=== PATIENT | female | born 2000 | race Hispanic/Latino ===

== ENCOUNTER 2022-08-25 20:39 | Emergency (ER) | payer OTHER ==
[~2022-08-25] VITALS: Ht 160 cm; Wt 54.4 kg
[2022-08-25] MEDS ORDERED: CYCLOBENZAPRINE HCL 10 MG TABLET PO ONE (21:30)
[2022-08-25] MEDS ORDERED: KETOROLAC 60 MG VIAL (30MG/ML) IM ONE (21:30)
[2022-08-25] MEDS ORDERED: IBUP-2071 PO (21:53)
[2022-08-25 22:06] VITALS: BP 112/63
== END 2022-08-25 22:12 | disposition home or self-care (01) ==
LOC: EDH 20:39
DX: S40.021A Contusion of right upper arm, initial encounter (principal); S50.11XA Contusion of right forearm, initial encounter; S80.11XA Contusion of right lower leg, initial encounter; V49.49XA Driver injured in collision with other motor vehicles in traffic accident, initial encounter; Y93.89 Activity, other specified; Y92.413 State road as the place of occurrence of the external cause; Y99.8 Other external cause status
CPT/HCPCS: 99284; 73090; 73060; 73551; 96372; J1885

== ENCOUNTER 2024-01-14 23:57 | Emergency (ER) | payer BC, MEDICAID ==
[~2024-01-14] VITALS: Ht 160 cm; Wt 72.1 kg
[~2024-01-14 23:57] MED LIST: CEPH500C2 PO; IBUP-2071 PO
[2024-01-15 00:32] LABS: ADD UA MICROSCOPIC YES; APPEARANCE,URINE CLEAR (CLEAR); BILIRUBIN,URINE NEGATIVE (NEGATIVE); COLOR,URINE COLORLESS (YELLOW); GLUCOSE, URINE (UA) NEGATIVE (NEGATIVE); KETONES,URINE NEGATIVE (NEGATIVE); LEUKOCYTE ESTERASE ,URINE 500 Leu/uL (NEGATIVE); NITRATE,URINE NEGATIVE (NEGATIVE); PH,URINE 5.5 (5.0-8.0); PROTEIN,URINE NEGATIVE (NEGATIVE); UROBILINOGEN,URINE 0.2 mg/dL (0.2-1.0)
[2024-01-15 00:34] LABS: HCG,QUALITATIVE URINE NEGATIVE (NEGATIVE)
[2024-01-15 00:35] LABS: BACTERIA,URINE MANY /HPF (None Seen); MUCUS,URINE RARE LPF (None Seen); SQUAMOUS EPITHELIAL CELL,UR RARE /HPF (0-2)
[2024-01-15] MEDS: ACETAMINOPHEN 500 MG TABLET PO ONE (00:52)
[2024-01-15 00:56] LABS: BASOPHILS # (AUTO) 0.04 K/uL (0.00-0.20); BASOPHILS % (AUTO) 0.4 % (0.0-5.0); EOSINOPHILS # (AUTO) 0.14 K/uL (0.00-0.70); EOSINOPHILS % (AUTO) 1.2 % (0.0-8.0); HEMATOCRIT 34.9 % (36-48); IMMATURE GRANULOCYTE ABSOLUTE 0.03 K/uL (0-1); LYMPHOCYTES # (AUTO) 3.2 K/uL (1.0-4.8); LYMPHOCYTES % (AUTO) 28.5 % (21.0-51.0); MEAN CORPUSCULAR HEMOGLOBIN 29.3 pg (27.0-33.0); MEAN CORPUSCULAR HGB CONC 34.4 g/dL (32.0-36.0); MEAN CORPUSCULAR VOLUME 85.1 fL (79-99); MONOCYTES # (AUTO) 0.8 K/uL (0.1-1.0); MONOCYTES % (AUTO) 6.9 % (3.0-13.0); NEUTROPHILS # (AUTO) 7.1 K/uL (1.8-7.7); NEUTROPHILS % (AUTO) 62.7 % (40.0-77.0); PLATELET COUNT (AUTO) 173 K/uL (130-400); WHITE BLOOD COUNT (AUTO) 11.3 K/uL (4.8-10.8)
[2024-01-15 01:06] LABS: CREATININE 0.8 mg/dL (0.5-1.0); POTASSIUM 3.4 mmol/L (3.5-5.1)
[2024-01-15 01:10] LABS: ALBUMIN 3.8 g/dL (3.5-5.0); BILIRUBIN,TOTAL 0.2 mg/dL (0.2-1.0); TOTAL PROTEIN, SERUM 7.1 g/dL (6.0-8.3)
[2024-01-15] MEDS: CEFTRIAXONE 1G VIAL IVPB ONE (01:56)
[2024-01-15] MEDS: KETOROLAC 30MG VIAL (30MG/ML) IVP ONE (04:23)
[2024-01-15 04:55] VITALS: BP 102/55; PULSE 75; RESP 18; O2SAT 99
[2024-01-15] MEDS ORDERED: MACR100 PO (04:58)
[2024-01-15] MEDS ORDERED: IBUP-2070 PO (04:58)
== END 2024-01-15 05:05 | disposition home or self-care (01) ==
LOC: EDH 01-15
DX: N39.0 Urinary tract infection, site not specified (principal); R10.9 Unspecified abdominal pain; K59.00 Constipation, unspecified
CPT/HCPCS: 99284; 74176; 96365; 96375; 80053; 83690; 85025; 87077; 87088; 87186; 87797; 87486; 81001; 81025; 36415; J0696; J1885

== ENCOUNTER 2024-04-20 13:42 | Emergency (ER) | payer BC ==
[~2024-04-20] VITALS: Ht 160 cm; Wt 68.0 kg
[~2024-04-20 13:42] MED LIST changes: +IBUP-2070 PO; +MACR100 PO
[2024-04-20 14:32] LABS: APPEARANCE,URINE CLEAR (CLEAR); BILIRUBIN,URINE NEGATIVE (NEGATIVE); GLUCOSE, URINE (UA) NEGATIVE (NEGATIVE); KETONES,URINE NEGATIVE (NEGATIVE); LEUKOCYTE ESTERASE ,URINE NEGATIVE Leu/uL (NEGATIVE); NITRATE,URINE NEGATIVE (NEGATIVE); OCCULT BLOOD,URINE NEGATIVE (NEGATIVE); PH,URINE 7.5 (5.0-8.0); PROTEIN,URINE NEGATIVE (NEGATIVE); UROBILINOGEN,URINE 0.2 mg/dL (0.2-1.0)
[2024-04-20 14:33] LABS: ADD UA MICROSCOPIC NO; COLOR,URINE LIGHT-YELLOW (YELLOW)
[2024-04-20 14:37] LABS: HCG,QUALITATIVE URINE NEGATIVE (NEGATIVE)
[2024-04-20 15:18] VITALS: BP 110/65; PULSE 66; RESP 16; O2SAT 98
[2024-04-20] MEDS: KETOROLAC 15MG/ML VIAL (15MG/ML) IM ONE (15:20)
[2024-04-20] MEDS ORDERED: KETO10TA2 PO (15:27)
== END 2024-04-20 15:29 | disposition home or self-care (01) ==
LOC: EDH 13:42
DX: R51.9 Headache, unspecified (principal); R42 Dizziness and giddiness; H53.8 Other visual disturbances; Z79.899 Other long term (current) drug therapy; Z79.2 Long term (current) use of antibiotics
CPT/HCPCS: 99284; 70450; 81003; 81025; 96372; J1885

== ENCOUNTER 2024-05-24 00:23 | Emergency (ER) | payer BC ==
[~2024-05-24] VITALS: Ht 160 cm; Wt 68.0 kg
[~2024-05-24 00:23] MED LIST changes: +KETO10TA2 PO
[2024-05-24 00:59] LABS: RAPID GROUP A STREP negative (NEGATIVE)
[2024-05-24 01:02] LABS: SARS-CoV-2, RNA, NAAT NEGATIVE SARS CoV-2 (NEGATIVE)
[2024-05-24 01:06] LABS: INFLUENZA TYPE A Negative For Type A (NEGATIVE); INFLUENZA TYPE B Negative For Type B (NEGATIVE)
[2024-05-24 02:53] VITALS: BP 102/56; PULSE 63; RESP 19; O2SAT 99
[2024-05-24] MEDS ORDERED: AZIT500T4 PO (03:02)
[2024-05-24] MEDS ORDERED: PRED20TA3 PO (03:02)
[2024-05-24] MEDS: Solu-medROL 40MG VIAL IM ONE (03:17)
[2024-05-24] MEDS: KETOROLAC 15MG/ML VIAL (15MG/ML) IM ONE (03:17)
== END 2024-05-24 03:50 | disposition home or self-care (01) ==
LOC: EDH 00:23
DX: B34.9 Viral infection, unspecified (principal); J20.9 Acute bronchitis, unspecified; Z20.822 Contact with and (suspected) exposure to COVID-19; Z79.899 Other long term (current) drug therapy
CPT/HCPCS: 99284; 71045; 87635; 87880; 87804 ×2; 81025; 96372 ×2; J2919; J1885

== ENCOUNTER 2024-05-27 18:36 | Emergency (ER) | payer BC ==
[~2024-05-27] VITALS: Ht 160 cm; Wt 68.0 kg
[~2024-05-27 18:36] MED LIST changes: +AZIT500T4 PO; +PRED20TA3 PO
[2024-05-27 19:07] LABS: RAPID GROUP A STREP negative (NEGATIVE)
[2024-05-27 19:09] LABS: SARS-CoV-2, RNA, NAAT NEGATIVE SARS CoV-2 (NEGATIVE)
[2024-05-27 19:17] LABS: INFLUENZA TYPE A Negative For Type A (NEGATIVE); INFLUENZA TYPE B Negative For Type B (NEGATIVE)
[2024-05-27] MEDS: dexaMETHasone SOD PHOSPHATE 4 MG/ML 1ML VIAL IM ONE (20:12)
[2024-05-27 20:37] VITALS: PULSE 72; RESP 18
[2024-05-27] MEDS: ALBUTEROL 0.083% 2.5 MG/3 ML INH IH ONE (20:37)
[2024-05-27] MEDS ORDERED: AUD IH (20:53)
[2024-05-27] MEDS ORDERED: BUDE1AMP2 IH (20:53)
[2024-05-27] MEDS ORDERED: BENZ-39 PO (20:53)
[2024-05-27] MEDS ORDERED: METH4TAB3 PO (20:53)
[2024-05-27 20:57] VITALS: PULSE 75; RESP 20
[2024-05-27] MEDS: BUDESONIDE 0.5 MG/2 ML INH IH STA (20:57)
[2024-05-27 20:59] VITALS: BP 116/65; PULSE 70; RESP 16; O2SAT 99
== END 2024-05-27 21:30 | disposition home or self-care (01) ==
LOC: EDH 18:36
DX: J45.901 Unspecified asthma with (acute) exacerbation (principal); R06.00 Dyspnea, unspecified; R05.9 Cough, unspecified; Z79.899 Other long term (current) drug therapy; Z20.822 Contact with and (suspected) exposure to COVID-19
CPT/HCPCS: 99284; 71045; 87635; 84703; 87880; 87804 ×2; 36415; 96372; 94640 ×2; J1100

== ENCOUNTER 2024-06-28 15:25 | Emergency (ER) | payer BC ==
[~2024-06-28] VITALS: Ht 160 cm; Wt 68.0 kg
[~2024-06-28 15:25] MED LIST changes: +AUD IH; +BENZ-39 PO; +BUDE1AMP2 IH; +METH4TAB3 PO
[2024-06-28 16:46] LABS: RAPID GROUP A STREP negative (NEGATIVE)
[2024-06-28 16:48] LABS: SARS-CoV-2, RNA, NAAT NEGATIVE SARS CoV-2 (NEGATIVE)
[2024-06-28 16:54] LABS: INFLUENZA TYPE A Negative For Type A (NEGATIVE); INFLUENZA TYPE B Negative For Type B (NEGATIVE)
[2024-06-28] MEDS ORDERED: PNV-5 PO (16:56)
[2024-06-28 17:36] VITALS: BP 121/71; PULSE 64; RESP 16; TEMP 98.5; O2SAT 100
== END 2024-06-28 17:46 | disposition home or self-care (01) ==
LOC: EDH 15:25
DX: O98.511 Other viral diseases complicating pregnancy, first trimester (principal); Z20.822 Contact with and (suspected) exposure to COVID-19; B34.9 Viral infection, unspecified; O26.891 Other specified pregnancy related conditions, first trimester; H92.01 Otalgia, right ear; R10.2 Pelvic and perineal pain
CPT/HCPCS: 36415; 84702; 87635; 87804; 87880

== ENCOUNTER 2024-07-23 00:01 | Emergency (ER) | payer BC ==
[~2024-07-23] VITALS: Ht 160 cm; Wt 68.0 kg
[~2024-07-23 00:01] MED LIST changes: +PNV-5 PO
[2024-07-23 00:45] LABS: BASOPHILS # (AUTO) 0.04 K/uL (0.00-0.20); BASOPHILS % (AUTO) 0.4 % (0.0-5.0); EOSINOPHILS # (AUTO) 0.08 K/uL (0.00-0.70); EOSINOPHILS % (AUTO) 0.7 % (0.0-8.0); HEMATOCRIT 35.2 % (36-48); IMMATURE GRANULOCYTE ABSOLUTE 0.03 K/uL (0-1); LYMPHOCYTES # (AUTO) 2.5 K/uL (1.0-4.8); LYMPHOCYTES % (AUTO) 22.7 % (21.0-51.0); MEAN CORPUSCULAR HEMOGLOBIN 29.9 pg (27.0-33.0); MEAN CORPUSCULAR HGB CONC 34.7 g/dL (32.0-36.0); MEAN CORPUSCULAR VOLUME 86.3 fL (79-99); MONOCYTES # (AUTO) 0.8 K/uL (0.1-1.0); MONOCYTES % (AUTO) 6.7 % (3.0-13.0); NEUTROPHILS # (AUTO) 7.8 K/uL (1.8-7.7); NEUTROPHILS % (AUTO) 69.2 % (40.0-77.0); PLATELET COUNT (AUTO) 172 K/uL (130-400); RED BLOOD CELL COUNT(AUTO) 4.08 MIL/uL (4.00-5.50); RED CELL DISTRIBUTION WIDTH 13.4 % (11.0-15.5); WHITE BLOOD COUNT (AUTO) 11.2 K/uL (4.8-10.8)
[2024-07-23 01:03] LABS: CREATININE 0.6 mg/dL (0.5-1.0); POTASSIUM 3.7 mmol/L (3.5-5.1)
[2024-07-23] MEDS: ondanSETRON 4MG INJ IVP ONE (01:06)
[2024-07-23] MEDS: 0.9%NACL 1000ML 1,000 ML IV ONE (01:06)
[2024-07-23] MEDS: acetaMINOPHEN 500 MG TABLET PO ONE (01:06)
[2024-07-23 01:29] LABS: ALBUMIN 3.8 g/dL (3.5-5.0); BILIRUBIN,TOTAL 0.3 mg/dL (0.2-1.0); TOTAL PROTEIN, SERUM 7.2 g/dL (6.0-8.3)
[2024-07-23 01:37] VITALS: TEMP 98.5
[2024-07-23 01:48] LABS: ADD UA MICROSCOPIC YES; APPEARANCE,URINE CLOUDY (CLEAR); BILIRUBIN,URINE NEGATIVE (NEGATIVE); COLOR,URINE LIGHT-YELLOW (YELLOW); GLUCOSE, URINE (UA) NEGATIVE (NEGATIVE); KETONES,URINE 100 mg/dL (NEGATIVE); LEUKOCYTE ESTERASE ,URINE 500 Leu/uL (NEGATIVE); NITRATE,URINE NEGATIVE (NEGATIVE); OCCULT BLOOD,URINE NEGATIVE (NEGATIVE); PH,URINE 5.5 (5.0-8.0); PROTEIN,URINE NEGATIVE (NEGATIVE); UROBILINOGEN,URINE 0.2 mg/dL (0.2-1.0)
[2024-07-23 01:50] LABS: HCG,QUALITATIVE URINE POSITIVE (NEGATIVE)
[2024-07-23 01:51] LABS: BACTERIA,URINE RARE /HPF (None Seen); SQUAMOUS EPITHELIAL CELL,UR FEW /HPF (0-2); WBC,URINE 51-100 /HPF (0-1)
[2024-07-23] MEDS: cefTRIAXone 1G VIAL IVPB ONE (01:59)
[2024-07-23] MEDS ORDERED: CEPH500B PO (03:00)
[2024-07-23] MEDS: AZITHROMYCIN 250 MG TABLET PO ONE (03:20)
[2024-07-23 03:25] VITALS: BP 110/65; PULSE 70; RESP 18; TEMP 98.3; O2SAT 99
== END 2024-07-23 03:25 | disposition home or self-care (01) ==
LOC: EDH 00:01
DX: O23.41 Unspecified infection of urinary tract in pregnancy, first trimester (principal); N18.9 Chronic kidney disease, unspecified; O26.891 Other specified pregnancy related conditions, first trimester; O99.281 Endocrine, nutritional and metabolic diseases complicating pregnancy, first trimester; E87.1 Hypo-osmolality and hyponatremia; E87.8 Other disorders of electrolyte and fluid balance, not elsewhere classified; R10.2 Pelvic and perineal pain; Z3A.00 Weeks of gestation of pregnancy not specified; Z79.899 Other long term (current) drug therapy
CPT/HCPCS: 99284; 96374; 76801; 96375; 80053; 84702; 83690; 85025; 87086; 87491; 87591; 81001; 81025; 36415; J7030; J0696; J2405

== ENCOUNTER 2024-09-11 14:08 | Emergency (ER) | payer BC ==
[~2024-09-11] VITALS: Ht 165.1 cm; Wt 68.0 kg
[~2024-09-11 14:08] MED LIST changes: +CEPH500B PO
[2024-09-11 15:20] LABS: APPEARANCE,URINE CLEAR (CLEAR); BILIRUBIN,URINE NEGATIVE (NEGATIVE); COLOR,URINE YELLOW (YELLOW); GLUCOSE, URINE (UA) NEGATIVE (NEGATIVE); KETONES,URINE 5 mg/dL (NEGATIVE); LEUKOCYTE ESTERASE ,URINE NEGATIVE Leu/uL (NEGATIVE); NITRATE,URINE NEGATIVE (NEGATIVE); OCCULT BLOOD,URINE NEGATIVE (NEGATIVE); PH,URINE 6.5 (5.0-8.0); PROTEIN,URINE 10 mg/dL (NEGATIVE)
[2024-09-11 15:25] LABS: ADD UA MICROSCOPIC YES
[2024-09-11 15:26] LABS: BASOPHILS # (AUTO) 0.02 K/uL (0.00-0.20); BASOPHILS % (AUTO) 0.3 % (0.0-5.0); EOSINOPHILS # (AUTO) 0.05 K/uL (0.00-0.70); EOSINOPHILS % (AUTO) 0.6 % (0.0-8.0); HEMATOCRIT 36.6 % (36-48); IMMATURE GRANULOCYTE ABSOLUTE 0.02 K/uL (0-1); LYMPHOCYTES # (AUTO) 1.6 K/uL (1.0-4.8); MEAN CORPUSCULAR HEMOGLOBIN 29.7 pg (27.0-33.0); MEAN CORPUSCULAR HGB CONC 33.9 g/dL (32.0-36.0); MEAN CORPUSCULAR VOLUME 87.8 fL (79-99); MONOCYTES # (AUTO) 0.5 K/uL (0.1-1.0); MONOCYTES % (AUTO) 5.9 % (3.0-13.0); NEUTROPHILS # (AUTO) 5.8 K/uL (1.8-7.7); NEUTROPHILS % (AUTO) 72.9 % (40.0-77.0); PLATELET COUNT (AUTO) 165 K/uL (130-400); RED BLOOD CELL COUNT(AUTO) 4.17 MIL/uL (4.00-5.50); RED CELL DISTRIBUTION WIDTH 12.6 % (11.0-15.5); WHITE BLOOD COUNT (AUTO) 7.9 K/uL (4.8-10.8)
[2024-09-11 15:29] LABS: MUCUS,URINE RARE LPF (None Seen); RBC,URINE 0-1 /HPF (0-1); SQUAMOUS EPITHELIAL CELL,UR MOD /HPF (0-2)
[2024-09-11 15:52] LABS: ALBUMIN 3.3 g/dL (3.5-5.0); BILIRUBIN,DIRECT 0.1 mg/dL (0.0-0.3); BILIRUBIN,TOTAL 0.4 mg/dL (0.2-1.0); CREATININE 0.5 mg/dL (0.5-1.0); POTASSIUM 3.6 mmol/L (3.5-5.1); TOTAL PROTEIN, SERUM 6.9 g/dL (6.0-8.3)
[2024-09-11 15:54] VITALS: BP 115/70; PULSE 77; RESP 16; TEMP 98.3; O2SAT 100
--- NOTE | 2024-09-11 15:56 | HMCIMG ---
US OB >14 WEEKS REASON: lower abd pain during approx 14 weeks COMPARISON: None TECHNIQUE: Routine OB sonogram was performed. FINDINGS: There is a single fetus in breech position with positive motion and heartbeat, 164 BPM. Composite gestational age is 15 weeks 5 days. Placenta is fundal and grade 1 with JORGE 12 cm. Estimated weight is 144 g. Visualized anatomy appears unremarkable. IMPRESSION: 1. Single fetus in breech position 15 weeks 5 days by composite gestational age.
[2024-09-11] MEDS ORDERED: CEPH500B PO (16:40)
--- NOTE | 2024-09-11 16:43 | ERN ---
General Chief Complaint: Abdominal Pain in Stated Complaint: LOWER ABD PAIN Time Seen by MD: 14:10 Time Seen by Midlevel: 14:10 Source: patient History of Present Illness Initial Comments Patient is a 24-year-old female with no significant past medical history presenting to the emergency department with lower abdominal pain and dysuria that started yesterday. No fever, chills, nausea, vomiting, or any other symptoms reported at this time. Patient reports being approximately 15 weeks . She has an appointment scheduled with her OBGYN in several days. No other symptoms reported at this time. Allergies: Coded Allergies: No Known Drug Allergies (Unverified Allergy, Unknown, 08/25/22) Home Meds Active Scripts Cephalexin Monohydrate (Keflex) 500 Mg Cap, 500 MG PO TID for 7 Days, #21 CAP Prov:VENTURA ZAVALA 09/11/24 Cephalexin Monohydrate (Keflex) 500 Mg Cap, 500 MG PO QID for 7 Days, #28 CAP Prov:ANNA MARIE VELAZQUEZ MD 07/23/24 Pnv 119/Iron Fum/Folic Acid ( 19 Tablet) 29 Mg Iron-1 Mg Tablet, 1 EACH PO DAILY, #30 TAB Prov:SHANNON VANESSA NP 06/28/24 Methylprednisolone (Medrol) 4 Mg Tab.ds.pk, 4 MG PO AD, #1 UNIT Prov:SHANNON VNAESSA NP 05/27/24 Benzonatate (Tessalon Perles) 100 Mg Cap, 200 MG PO TID for cough, #60 CAP 0 Refills TWO CAPSULES P.O. EVERY8 HOURS P.R.N. COUGH Prov:SHANNON VANESSA NP 05/27/24 Budesonide (Budesonide) 1 Mg/2 Ml Ampul.neb, 1 MG IH BID for 10 Days, #25 UNITS Prov:SHANNON VANESSA NP 05/27/24 Albuterol Sulfate (Albuterol Sulfate) 2.5 Mg/0.5 Ml Vial.neb, 2.5 MG IH Q6H for wheezing/sob, #20 INH 0 Refills Prov:SHANNON VANESSA NP 05/27/24 Azithromycin (Azithromycin) 500 Mg Tablet, 500 MG PO DAILY for 5 Days, #5 TAB Prov:ZEB GOMEZ MD 05/24/24 Prednisone (Prednisone) 20 Mg Tablet, 1 TAB PO AD for 6 Days, #14 TAB 0 Refills TAKE 1 TAB BY MOUTH THREE TIMES PER DAY X3 DAYS, THEN TAKE 1 TAB BY MOUTH TWICE A DAY X2 DAYS, THEN TAKE 1 TAB BY MOUTH ONCE A DAY X1 DAY. Prov:ZEB GOMEZ MD 05/24/24 Ketorolac Tromethamine (Ketorolac Tromethamine) 10 Mg Tablet, 10 MG PO BID for 5 Days, #10 TAB Prov:VENTURA ZAVALA 04/20/24 Ibuprofen (Ibuprofen) 600 Mg Tablet, 600 MG PO Q6H PRN for PAIN, #30 TAB 0 Refills Prov:CRIS MAXWELL MD 01/15/24 Nitrofurantoin/Nitrofuran Mac (Macrobid) 100 Mg Cap, 1 CAP PO BID for 7 Days, #14 CAP 0 Refills Prov:CRIS MAXWELL MD 01/15/24 Cephalexin (Cephalexin) 500 Mg Capsule, 500 MG PO TID for 10 Days, #30 CAP Prov:SUE SANCHEZ MD 01/04/23 Ibuprofen (Ibuprofen) 800 Mg Tablet, 800 MG PO TID PRN for PAIN, #45 TAB Prov:ZAINAB JIMENEZ 08/25/22 Past Medical History Past Medical History: No Pertinent History Past Surgical History: None Family History Family History: Negative Social History Social History: Lives with family Female( History) History: Not Applicable LMP: May 23, 2024 : 1 Para: 0 ROS Dictation CONSTITUTIONAL: Negative except for HPI HEAD/FACE: Negative except for HPI EENT: Negative except for HPI RESPIRATORY: Negative except for HPI GASTROINTESTINAL/ABDOMINAL: Negative except for HPI GENITOURINARY: Negative except for HPI MUSCULOSKELETAL: Negative except for HPI INTEGUMENTARY: Negative except for HPI NEUROLOGICAL/PSYCH: Negative except for HPI HEMATOLOGIC/LYMPHATIC: Negative except for HPI All Systems Negative, Except as noted above. 13 point review of systems assessed and all negative except for above. Physical Exam Physical Exam Dictation Vital Signs reviewed General Appearance: Alert, oriented x 3, no acute distress, well developed, nourished. Head and Face: non-traumatic. Eyes: PERRL, pink conjunctivas, eyelid no trauma, anterior chamber with arcus senilis. Ears: Pinnas intact and no signs of trauma or erythema ear canals clear and no discharge TM no erythema Nose: No discharge, no bleeding. Oropharynx: Mouth normal, tongue pink, pharynx clear,no erythema, tonsils no exudates, no abscesses noted, mucous membrane moist Neck: Supple, non-tender, no thyromegaly, no masses, no JVD, no bruits Breast:Deferred Chest:No tenderness, no crepitus, no paradoxical movement, no retractions Lungs:Clear, well-ventilated, symmetric, no rales, no wheezing, no rhonchi, no stridor, good breath sounds bilaterally Heart: Regular rate, regular rhythm, no murmur, no gallops Vascular: no peripheral edema, Abdomen: Soft, positive bowel sounds, nondistended, no guarding, nontender, no rebound, no masses no hepatomegaly, no splenomegaly, no Koch's sign, no hernias. Rectal: Deferred Genital: Deferred Neurological: Normal speech, motor function intact, sensory function intact Musculoskeletal: Neck nontender, full range of motion, back nontender, full range of motion, Extremities: nontender, full range of motion Skin: Color pink, dry, no turgor, no rash, no lacerations, no abrasions, no contusions. Lymphatic: Deferred Results Laboratory and Microbiology Lab and Micro Result Laboratory Tests Test 09/11/24 15:00 09/11/24 15:08 Urine Color YELLOW (YELLOW) Urine Appearance CLEAR (CLEAR) Urine pH 6.5 (5.0-8.0) Urine Specific [place] 1.023 (1.001-1.031) Urine Protein 10 mg/dL (NEGATIVE) H Urine Glucose (UA) NEGATIVE mg/dL (NEGATIVE) Urine Ketones 5 mg/dL (NEGATIVE) H Urine Occult Blood NEGATIVE (NEGATIVE) Urine Nitrate NEGATIVE (NEGATIVE) Urine Bilirubin NEGATIVE mg/dL (NEGATIVE) Urine Urobilinogen 2.0 mg/dL (0.2-1.0) H Urine Leukocyte Esterase NEGATIVE Mehul/uL Urine RBC 0-1 /HPF (0-1) Urine WBC 2-5 /HPF (0-1) H Urine Squamous Epithelial Cells MOD /HPF (0-2) Urine Bacteria None /HPF (None Seen) White Blood Count 7.9 K/uL (4.8-10.8) Red Blood Count 4.17 MIL/uL (4.00-5.50) Hemoglobin 12.4 g/dL (12.0-16.0) Hematocrit 36.6 % (36-48) Mean Corpuscular Volume 87.8 fL (79-99) Mean Corpuscular Hemoglobin 29.7 pg (27.0-33.0) Mean Corpuscular Hemoglobin Concent 33.9 g/dL (32.0-36.0) Red Cell Distribution Width 12.6 % (11.0-15.5) Platelet Count 165 K/uL (130-400) Mean Platelet Volume 12.0 fL (7.5-10.5) H Immature Granulocyte % (Auto) 0.3 % (0-1) Neutrophils (%) (Auto) 72.9 % (40.0-77.0) Lymphocytes (%) (Auto) 20.0 % (21.0-51.0) L Monocytes (%) (Auto) 5.9 % (3.0-13.0) Eosinophils (%) (Auto) 0.6 % (0.0-8.0) Basophils (%) (Auto) 0.3 % (0.0-5.0) Neutrophils # (Auto) 5.8 K/uL (1.8-7.7) Lymphocytes # (Auto) 1.6 K/uL (1.0-4.8) Monocytes # (Auto) 0.5 K/uL (0.1-1.0) Eosinophils # (Auto) 0.05 K/uL (0.00-0.70) Basophils # (Auto) 0.02 K/uL (0.00-0.20) Absolute Immature Granulocyte (auto 0.02 K/uL (0-1) Nucleated Red Blood Cells 0.0 % (0.0-0.19) Sodium Level 139 mmol/L (136-145) Potassium Level 3.6 mmol/L (3.5-5.1) Chloride Level 105 mmol/L (101-111) Carbon Dioxide Level 27 mmol/L (21-32) Blood Urea Nitrogen 5 mg/dL (7-18) L Creatinine 0.5 mg/dL (0.5-1.0) Glomerular Filtration Rate Calc 135 mL/min (>90) Random Glucose 67 mg/dL (70-105) L Total Calcium 8.5 mg/dL (8.5-10.1) Total Bilirubin 0.4 mg/dL (0.2-1.0) Direct Bilirubin 0.1 mg/dL (0.0-0.3) Aspartate Amino Transf (AST/SGOT) 22 U/L (10-37) Alanine Aminotransferase (ALT/SGPT) 30 U/L (12-78) Alkaline Phosphatase 64 U/L (50-136) Total Protein 6.9 g/dL (6.0-8.3) Albumin 3.3 g/dL (3.5-5.0) L Lipase 31 U/L (16-77) Human Chorionic Gonadotropin, Quant 31202 mIU/mL (0-5) H Labs Reviewed?: Yes MDM MDM: Patient is a 24-year-old female with no significant past medical history presenting to the emergency department with lower abdominal pain and dysuria that started yesterday. No fever, chills, nausea, vomiting, or any other symptoms reported at this time. Patient reports being approximately 15 weeks . She has an appointment scheduled with her OBGYN in several days. No other symptoms reported at this time. On physical examination patient is in no acute distress. Her CBC shows a normal white blood cell count of 7.9. Hemoglobin is stable at 12.4. Chemistries [place] [address]. Her urinalysis does not show any evidence of infection. However patient has dysuria. We will treat for urinary tract infection. Pelvic ultrasound rev eals a single fetus in breech position measuring approximately 15 weeks and five days. Lab and imaging was discussed with the patient she was advised to follow up with OBGYN. Return precautions discussed. Patient is stable for discharge Differential diagnosis: Urinary tract infection, pyelonephritis,Spontaneous There are no social concerns with this patient. Prescription drug management Prescriptions will include: Keflex Medical management and examination interpretation discussions were had by me with other qualified healthcare professionals as indicated for the patient's care. ED Course Orders Procedure Category Date Status Time Cbc With Differential LAB 09/11/24 Complete 14:22 Basic Metabolic Panel LAB 09/11/24 Complete 14:22 Hepatic Function Panel LAB 09/11/24 Complete 14:22 Lipase LAB 09/11/24 Complete 14:22 Hcg,Quantitative LAB 09/11/24 Complete 14:22 Urinalysis Profile LAB 09/11/24 Complete 14:22 Us Ob >14 Weeks US 09/11/24 Resulted 15:15 Vital Signs Date Time Temp Pulse Resp B/P (MAP) Pulse Ox O2 Delivery O2 Flow Rate FiO2 09/11/24 15:54 98.2 77 16 115/70 100 Room Air* 0 21 09/11/24 14:09 98.4 71 16 117/70 100 Room Air 0 DX & DISP Disposition: Discharge Departure Impression: Primary Impression: Abdominal pain during Additional Impression: Dysuria Condition: Stable Scripts Cephalexin Monohydrate (Keflex) 500 Mg Cap 500 MG PO TID for 7 Days, #21 CAP Prov: VENTURA ZAVALA 09/11/24 Additional Instructions: Your blood work today is unremarkable. Your urinalysis does not show any evidence of infection however you are having symptoms so I will go ahead and treat for urinary tract infection to prevent a kidney infection. Your pelvic ultrasound shows an intrauterine gestation measuring approximately 15 weeks and five days. Please follow up with your primary care doctor in 2-3 days for repeat evaluation. Keep appointment with your OBGYN as scheduled. Return to the ER for any new or worsening symptoms Referrals: SELF,REFERRAL (PCP) Time of Disposition: 16:39 I have reviewed the case, and I agree with, Diagnosis and Plan I performed the substantive portion of the visit. I have reviewed and personally made and approve the management plan that is documented in the note by myself or the LYNETTE. I acknowledge for responsibility for the patient's management plan. VENTURA ZAVALA Sep 11, 2024 16:42
== END 2024-09-11 16:55 | disposition home or self-care (01) ==
LOC: EDH 14:08
DX: O26.892 Other specified pregnancy related conditions, second trimester (principal); R10.30 Lower abdominal pain, unspecified; R30.0 Dysuria; R10.2 Pelvic and perineal pain; Z3A.15 15 weeks gestation of pregnancy
CPT/HCPCS: 36415; 76805; 80048; 80076; 81001; 83690; 84702; 85025; 99284

== ENCOUNTER 2024-10-03 15:55 | Emergency (ER) | payer BC ==
[~2024-10-03] VITALS: Ht 160 cm; Wt 68.0 kg
[2024-10-03 19:14] LABS: BILIRUBIN,URINE NEGATIVE (NEGATIVE); COLOR,URINE LIGHT-YELLOW (YELLOW); GLUCOSE, URINE (UA) NEGATIVE (NEGATIVE); KETONES,URINE NEGATIVE (NEGATIVE); LEUKOCYTE ESTERASE ,URINE 500 Leu/uL (NEGATIVE); NITRATE,URINE NEGATIVE (NEGATIVE); OCCULT BLOOD,URINE NEGATIVE (NEGATIVE); PROTEIN,URINE NEGATIVE (NEGATIVE); UROBILINOGEN,URINE 0.2 mg/dL (0.2-1.0)
[2024-10-03 19:18] LABS: ADD UA MICROSCOPIC YES; APPEARANCE,URINE HAZY (CLEAR)
[2024-10-03 19:24] LABS: RAPID GROUP A STREP negative (NEGATIVE)
[2024-10-03] MEDS: acetaMINOPHEN 500 MG TABLET PO ONE (19:26)
--- NOTE | 2024-10-03 19:28 | ERN ---
ED Note History of Present Illness Stated Complaint: FEVER Chief Complaint: Fever Time Seen by MD: 18:01 Time Seen by Midlevel: 18:01 Dictation: The patient is a 24-year-old female with no past medical history who presents to the emergency department with complaints of body aches, nasal congestion, burning urination onset yesterday. Patient denies any abdominal pain, flank sharan n, no fevers, vaginal bleeding or discharge. Patient does report she is a 19 weeks . G1. Denies nausea vomiting diarrhea. Allergies: Coded Allergies: No Known Drug Allergies (Unverified Allergy, Unknown, 08/25/22) Home Meds Active Scripts Cephalexin Monohydrate (Keflex) 500 Mg Cap, 500 MG PO QID for 7 Days, #28 CAP Prov:TRISTON VELAZQUEZ 10/03/24 Cephalexin Monohydrate (Keflex) 500 Mg Cap, 500 MG PO TID for 7 Days, #21 CAP Prov:VENTURA ZAVALA 09/11/24 Cephalexin Monohydrate (Keflex) 500 Mg Cap, 500 MG PO QID for 7 Days, #28 CAP Prov:ANNA MARIE VELAZQUEZ MD 07/23/24 Pnv 119/Iron Fum/Folic Acid ( 19 Tablet) 29 Mg Iron-1 Mg Tablet, 1 EACH PO DAILY, #30 TAB Prov:SHANNON VANESSA NP 06/28/24 Methylprednisolone (Medrol) 4 Mg Tab.ds.pk, 4 MG PO AD, #1 UNIT Prov:SHANNON VANESSA NP 05/27/24 Benzonatate (Tessalon Perles) 100 Mg Cap, 200 MG PO TID for cough, #60 CAP 0 Refills TWO CAPSULES P.O. EVERY8 HOURS P.R.N. COUGH Prov:SHANNNO VANESSA NP 05/27/24 Budesonide (Budesonide) 1 Mg/2 Ml Ampul.neb, 1 MG IH BID for 10 Days, #25 UNITS Prov:SHANNON VANESSA NP 05/27/24 Albuterol Sulfate (Albuterol Sulfate) 2.5 Mg/0.5 Ml Vial.neb, 2.5 MG IH Q6H for wheezing/sob, #20 INH 0 Refills Prov:SHANNON VANESSA NP 05/27/24 Azithromycin (Azithromycin) 500 Mg Tablet, 500 MG PO DAILY for 5 Days, #5 TAB Prov:ZEB GOMEZ MD 05/24/24 Prednisone (Prednisone) 20 Mg Tablet, 1 TAB PO AD for 6 Days, #14 TAB 0 Refills TAKE 1 TAB BY MOUTH THREE TIMES PER DAY X3 DAYS, THEN TAKE 1 TAB BY MOUTH TWICE A DAY X2 DAYS, THEN TAKE 1 TAB BY MOUTH ONCE A DAY X1 DAY. Prov:ZEB GOMEZ MD 05/24/24 Ketorolac Tromethamine (Ketorolac Tromethamine) 10 Mg Tablet, 10 MG PO BID for 5 Days, #10 TAB Prov:VENTURA ZAVALA 04/20/24 Ibuprofen (Ibuprofen) 600 Mg Tablet, 600 MG PO Q6H PRN for PAIN, #30 TAB 0 Refills Prov:CRIS MAXWELL MD 01/15/24 Nitrofurantoin/Nitrofuran Mac (Macrobid) 100 Mg Cap, 1 CAP PO BID for 7 Days, #14 CAP 0 Refills Prov:CRIS MAXWELL MD 01/15/24 Cephalexin (Cephalexin) 500 Mg Capsule, 500 MG PO TID for 10 Days, #30 CAP Prov:SUE SANCHEZ MD 01/04/23 Ibuprofen (Ibuprofen) 800 Mg Tablet, 800 MG PO TID PRN for PAIN, #45 TAB Prov:ZAINAB JIMENEZ 08/25/22 Past Medical History Past Medical History: No Pertinent History Surgical History: None Family History: Negative Social History: Lives with family History: Not Applicable LMP: May 21, 2024 : 1 Para: 0 RN Note Reviewed/Agreed w/PFSH: Yes Review of System Dictation Constitutional: Negative for fever,chills, and weight loss positive for body aches Eyes: Negative for injury, pain,redness, and discharge ENT: Negative for injury,pain or swelling positive for nasal congestion Cardiovascular: Negative for chest pain, palpitations, and edema Respiratory: Negative for shortness of breath, cough, and wheezing, Abdomen/GI: Negative for abdominal pain, nausea, vomiting, diarrhea, and constipation Back: Negative for injury and pain : Negative for injury, bleeding and discharge positive for burning urination MS/Extremity: Negative for injury and deformity Skin: Negative for rash, and discoloration Neuro: Negative for headache, weakness, numbness, tingling, and seizure Psych: Negative for suicide ideation, homicidal ideation, and hallucinations Initial Vital Sign VS Vital Signs Date Time Temp Pulse Resp B/P (MAP) Pulse Ox O2 Delivery O2 Flow Rate FiO2 10/03/24 18:03 97.5 69 20 98/66 99 Room Air 0 10/03/24 19:12 21 Physical Exam Dictation Vital Signs reviewed General Appearance: Alert, oriented x 3, no acute distress, well developed, nourished. Head and Face: non-traumatic. Eyes: PERRL, pink conjunctivas, eyelid no trauma, anterior chamber with arcus senilis. Ears: Pinnas intact and no signs of trauma or erythema ear canals clear and no discharge TM no erythema Nose: No discharge, no bleeding. Oropharynx: Mouth normal, tongue pink. pharynx clear,no erythema, tonsils no exudates, no abscesses noted, mucous membrane moist Neck: Supple, non-tender, no thyromegaly, no masses, no JVD, no bruits Breast:Deferred Chest:No tenderness, no crepitus, no paradoxical movement, no retractions Lungs:Clear, well-ventilated, symmetric, no rales, no wheezing, no rhonchi, no stridor, good breath sounds bilaterally Heart: Regular rate, regular rhythm, no murmur, no gallops Vascular: no peripheral edema, Abdomen: Soft, positive bowel sounds, nondistended, no guarding, nontender, no rebound, no masses no hepatomegaly, no splenomegaly, no Koch's sign, no hernias. Rectal: Deferred Genital: Deferred Neurological: Normal speech, motor function intact, sensory function intact Musculoskeletal: Neck nontender, full range of motion, back nontender, full range of motion, Extremities: nontender, full range of motion Skin: Color pink, dry, no turgor, no rash, no lacerations, no abrasions, no cont usions. Lymphatic: Deferred Results (Laboratory/Radiology) Laboratory/Radiology Laboratory Tests Test 10/03/24 18:18 10/03/24 19:00 Urine Color LIGHT-YELLOW (YELLOW) Urine Appearance HAZY (CLEAR) Urine pH 7.0 (5.0-8.0) Urine Specific [place] 1.007 (1.001-1.031) Urine Protein NEGATIVE mg/dL (NEGATIVE) Urine Glucose (UA) NEGATIVE mg/dL (NEGATIVE) Urine Ketones NEGATIVE mg/dL (NEGATIVE) Urine Occult Blood NEGATIVE (NEGATIVE) Urine Nitrate NEGATIVE (NEGATIVE) Urine Bilirubin NEGATIVE mg/dL (NEGATIVE) Urine Urobilinogen 0.2 mg/dL (0.2-1.0) Urine Leukocyte Esterase 500 Mehul/uL (NEGATIVE) H Urine RBC 0-1 /HPF (0-1) Urine WBC 26-50 /HPF (0-1) H Urine Squamous Epithelial Cells FEW /HPF (0-2) Urine Bacteria FEW /HPF (None Seen) Influenza Type A Antigen Negative For Type A Influenza Type B Antigen Negative For Type B SARS-CoV-2 Antigen (Rapid) PRESUMPTIVE NEGATIVE Group A Streptococcus Rapid negative (NEGATIVE) Labs Reviewed?: Yes ED Course ED Course Orders Procedure Category Date Status Time Influenza Type A & B, LAB 10/03/24 Complete Rapid 18:25 Covid19 (Sars Antigen LAB 10/03/24 Complete Rapid) 18:25 Rapid (Group A Strep) LAB 10/03/24 Complete 18:25 Acetaminophen 500mg PHA 10/03/24 Complete Tab (Tylenol 500mg T 18:30 Urinalysis Profile LAB 10/03/24 Complete 18:28 Culture Urine DONNY 10/03/24 Complete 19:19 Ceftriaxone 1g Vial PHA 10/03/24 Complete (Rocephine 1g Inj) 20:00 Current Medications Medications (Trade) Dose Ordered Sig/Cecelia Route PRN Reason Start Time Stop Time Status Last Admin Dose Admin Acetaminophen (TYLenol 500MG TAB) 1,000 mg ONCE ONCE PO 10/03/24 18:30 10/03/24 18:31 DC 10/03/24 19:26 Ceftriaxone Sodium (ROCEphine 1G INJ) 1 gm ONCE ONCE IM 10/03/24 20:00 10/03/24 20:01 DC 10/03/24 20:19 Vital Signs Date Time Temp Pulse Resp B/P (MAP) Pulse Ox O2 Delivery O2 Flow Rate FiO2 10/03/24 20:29 98.2 65 16 102/68 98 Room Air* 0 21 10/03/24 19:12 98.1 69 16 98/66 98 Room Air* 0 21 10/03/24 18:03 97.5 69 20 98/66 99 Room Air 0 Medical Decision Making MDM The patient is a 24-year-old female with no past medical history who presents to the emergency department with complaints of body aches, nasal congestion, burning urination onset yesterday. Patient denies any abdominal pain, flank pain, no fevers, vaginal bleeding or discharge. Patient does report she is a 19 weeks . G1. Denies nausea vomiting diarrhea. Serology negative. Urinalysis consistent with UTI. Patient will be treated with the antibiotics and instructed to follow up with the OBGYN and PCP. Patient in no acute distress, nontoxic appearance. Differential diagnosis: UTI, upper respiratory infection, COVID-19 infection Need for hospitalization: Patient does not meet criteria for hospitalization. There are no social concerns with this patient. DX & DISP Disposition: Discharge Departure Impression: Primary Impression: UTI (urinary tract infection) Additional Impression: URI (upper respiratory infection) Condition: Stable Scripts Cephalexin Monohydrate (Keflex) 500 Mg Cap 500 MG PO QID for 7 Days, #28 CAP Prov: TRISTON VELAZQUEZ 10/03/24 Additional Instructions: Is follow up with your primary doctor in 1-2 days and your OBGYN. Take your medications as prescribed. If symptoms worsen you started having flank pain abdominal pain, fatigue please return to ER. FOLLOW-UP WITH PRIMARY CARE PROVIDER IN 1 TO 2 DAYS. TAKE MEDICATIONS DIR ECTED HERE IN THE EMERGENCY ROOM. OKAY TO CONTINUE HOME MEDICATIONS UNLESS OTHERWISE DISCUSSED DURING YOUR VISIT IN THE EMERGENCY ROOM TODAY. RETURN TO YOUR NEAREST EMERGENCY ROOM IF SYMPTOMS WORSEN OR IF THERE IS NO IMPROVEMENT. CALL 911 IF YOU NEED IMMEDIATE ASSISTANCE. TAKE TYLENOL [id number] NEEDED AND IF NO CONTRAINDICATIONS ARE PRESENT. INCREASE ORAL HYDRATION. A WOUND CULTURE OR URINE CULTURE WAS ORDERED HERE IN THE EMERGENCY ROOM DEPARTMENT PLEASE FOLLOW-UP WITH PRIMARY CARE PROVIDER AND ADVISE THEM TO GET REPEAT PORTS FROM OUR FACILITY. IF YOU HAD ANY VIVIANE WRAP/SPLINTS THAT WERE APPLIED HERE, PLEASE DO NOT REMOVE THEM UNTIL YOU SEE YOUR PRIMARY CARE OR SPECIALTY. Referrals: TRESA LOBO MD (PCP) Time of Disposition: 20:24 I have reviewed the case, and I agree with, Diagnosis and Plan ATTESTATION BY PHYSICIAN I PERFORMED THE SUBSTANTIVE PORTION OF THE VISIT. I HAVE REVIEWED AND PERSONALLY MADE AND APPROVED THE MANAGEMENT PLAN THAT IS DOCUMENTED IN THE NOTE BY MYSELF FOR THE A PP. I ACKNOWLEDGED FOR RESPONSIBILITY FOR THE PATIENT'S MANAGEMENT PLAN. TRISTON VELAZQUEZ Oct 03, 2024 19:28 NEGRO MAYBERRY MD Oct 05, 2024 19:15
[2024-10-03 19:32] LABS: BACTERIA,URINE FEW /HPF (None Seen); MUCUS,URINE RARE LPF (None Seen); RBC,URINE 0-1 /HPF (0-1); SQUAMOUS EPITHELIAL CELL,UR FEW /HPF (0-2); WBC,URINE 26-50 /HPF (0-1)
[2024-10-03 19:32] LABS: COVID19 (SARS ANTIGEN RAPID) PRESUMPTIVE NEGATIVE (NEGATIVE); INFLUENZA TYPE A Negative For Type A (NEGATIVE); INFLUENZA TYPE B Negative For Type B (NEGATIVE)
[2024-10-03] MEDS: cefTRIAXone 1G VIAL IM ONE (20:19)
[2024-10-03 20:29] VITALS: BP 102/68; PULSE 65; RESP 16; TEMP 98.2; O2SAT 98
== END 2024-10-03 20:37 | disposition home or self-care (01) ==
LOC: EDH 15:55
DX: J06.9 Acute upper respiratory infection, unspecified (principal); N39.0 Urinary tract infection, site not specified; Z20.822 Contact with and (suspected) exposure to COVID-19; Z79.899 Other long term (current) drug therapy
CPT/HCPCS: 99284; 87426; 87086 ×2; 87186; 87880; 87804 ×2; 81001; 96372; J0696

== ENCOUNTER 2025-01-09 20:25 | Emergency (ER) | payer BC, MEDICAID ==
[~2025-01-09] VITALS: Ht 160 cm; Wt 75.3 kg
--- NOTE | 2025-01-09 21:16 | ERN ---
ED Note History of Present Illness Stated Complaint: FEVER, ABD PAIN Chief Complaint: OB>20 weeks gest. Time Seen by MD: 20:40 Time Seen by Midlevel: 20:44 Dictation: 24-year-old female with no past medical history coming in complaining of feeling nauseated, subjective fever, abdominal pain and weakness for the last couple of days. Patient was 31 weeks . Denies any vaginal discharge, vaginal bleeding, dysuria, hematuria. Patient sees Dr. Omar Suarez, last time she saw Dr. Kyle givens and was two weeks ago. G1, P0. LMP is May of 2024 Allergies: Coded Allergies: No Known Drug Allergies (Unverified Allergy, Unknown, 08/25/22) Home Meds Active Scripts Cephalexin Monohydrate (Keflex) 500 Mg Cap, 500 MG PO QID for 7 Days, #28 CAP Prov:TRISTON VELAZQUEZ 10/03/24 Cephalexin Monohydrate (Keflex) 500 Mg Cap, 500 MG PO TID for 7 Days, #21 CAP Prov:VENTURA ZAVALA 09/11/24 Cephalexin Monohydrate (Keflex) 500 Mg Cap, 500 MG PO QID for 7 Days, #28 CAP Prov:ANNA MARIE VELAZQUEZ MD 07/23/24 Pnv 119/Iron Fum/Folic Acid ( 19 Tablet) 29 Mg Iron-1 Mg Tablet, 1 EACH PO DAILY, #30 TAB Prov:SHANNON VANESSA NP 06/28/24 Methylprednisolone (Medrol) 4 Mg Tab.ds.pk, 4 MG PO AD, #1 UNIT Prov:SHANNON VANESSA NP 05/27/24 Benzonatate (Tessalon Perles) 100 Mg Cap, 200 MG PO TID for cough, #60 CAP 0 Refills TWO CAPSULES P.O. EVERY8 HOURS P.R.N. COUGH Prov:SHANNON VANESSA NP 05/27/24 Budesonide (Budesonide) 1 Mg/2 Ml Ampul.neb, 1 MG IH BID for 10 Days, #25 UNITS Prov:SHANNON VANESSA NP 05/27/24 Albuterol Sulfate (Albuterol Sulfate) 2.5 Mg/0.5 Ml Vial.neb, 2.5 MG IH Q6H for wheezing/sob, #20 INH 0 Refills Prov:SHANNON VANESSA NP 05/27/24 Azithromycin (Azithromycin) 500 Mg Tablet, 500 MG PO DAILY for 5 Days, #5 TAB Prov:ZEB GOMEZ MD 05/24/24 Prednisone (Prednisone) 20 Mg Tablet, 1 TAB PO AD for 6 Days, #14 TAB 0 Refills TAKE 1 TAB BY MOUTH THREE TIMES PER DAY X3 DAYS, THEN TAKE 1 TAB BY MOUTH TWICE A DAY X2 DAYS, THEN TAKE 1 TAB BY MOUTH ONCE A DAY X1 DAY. Prov:ZEB GOMEZ MD 05/24/24 Ketorolac Tromethamine (Ketorolac Tromethamine) 10 Mg Tablet, 10 MG PO BID for 5 Days, #10 TAB Prov:VENTURA ZAVALA 04/20/24 Ibuprofen (Ibuprofen) 600 Mg Tablet, 600 MG PO Q6H PRN for PAIN, #30 TAB 0 Refills Prov:CRIS MAXWELL MD 01/15/24 Nitrofurantoin/Nitrofuran Mac (Macrobid) 100 Mg Cap, 1 CAP PO BID for 7 Days, #14 CAP 0 Refills Prov:CRIS MAXWELL MD 01/15/24 Cephalexin (Cephalexin) 500 Mg Capsule, 500 MG PO TID for 10 Days, #30 CAP Prov:SUE SANCHEZ MD 01/04/23 Ibuprofen (Ibuprofen) 800 Mg Tablet, 800 MG PO TID PRN for PAIN, #45 TAB Prov:ZAINAB JIMENEZ 08/25/22 Past Medical History Past Medical History: No Pertinent History Surgical History: None Family History: Negative Social History: Lives with family History: Not Applicable LMP: May 26, 2024 : 1 Para: 0 Aborts: 0 Review of System Dictation Constitutional: Negative for fever,chills, and weight loss Eyes: Negative for injury, pain,redness, and discharge ENT: Negative for injury,pain or swelling Cardiovascular: Negative for chest pain, palpitations, and edema Respiratory: Negative for shortness of breath, cough, and wheezing, Abdomen/GI: Complaining of generalized abdominal pain and nausea, home vomiting , no diarrhea, and no constipation Back: Negative for injury and pain : Negative for injury, bleeding and discharge MS/Extremity: Negative for injury and deformity Skin: Negative for rash, and discoloration Neuro: Negative for headache, weakness, numbness, tingling, and seizure Psych: Negative for suicide ideation, homicidal ideation, and hallucinations Review of Systems: was completed Initial Vital Sign VS Vital Signs Date Time Temp Pulse Resp B/P (MAP) Pulse Ox O2 Delivery O2 Flow Rate FiO2 01/09/25 20:41 98.4 77 20 109/68 98 Room Air 01/09/25 21:01 0 21 Physical Exam Dictation General: awake, alert, NAD Head/Face: Normocephalic, atraumatic Eyes: PERRL, EOMI, vision at baseline ENT: oral cavity clear, TMs clear, no signs of infection Neck: Trachea midline, supple, no nuchal rigidity Cardiovascular: RRR, normal S1/S2, No MRGs, no JVD Respiratory: CTAB, no respiratory distress, No rales or wheezes Abdomen: Soft, non-tender, non-distended, normal bowel sounds, no guarding or rebound. heart tone 156bpm Skin: Warm, dry, normal turgor, no rash MS/Extremity: Pulses equal, no cyanosis, neurovascular intact, FROM Neuro: COAx4, GCS 15, strength 5/5, CN 2-12 intact, normal cerebellar exam, normal gait, Psych: Normal behavior, mood, and affect normal Results (Laboratory/Radiology) Laboratory/Radiology Laboratory Tests Test 01/09/25 20:15 01/09/25 21:15 Urine Color LIGHT-YELLOW (YELLOW) Urine Appearance CLOUDY (CLEAR) H Urine pH 8.0 (5.0-8.0) Urine Specific Blossom 1.009 (1.001-1.031) Urine Protein NEGATIVE mg/dL (NEGATIVE) Urine Glucose (UA) NEGATIVE mg/dL (NEGATIVE) Urine Ketones NEGATIVE mg/dL (NEGATIVE) Urine Occult Blood NEGATIVE (NEGATIVE) Urine Nitrate NEGATIVE (NEGATIVE) Urine Bilirubin NEGATIVE mg/dL (NEGATIVE) Urine Urobilinogen 0.2 mg/dL (0.2-1.0) Urine Leukocyte Esterase 500 Mehul/uL (NEGATIVE) H Urine RBC 0-1 /HPF (0-1) Urine WBC 11-25 /HPF (0-1) H Urine Squamous Epithelial Cells MOD /HPF (0-2) Urine Bacteria RARE /HPF (None Seen) Urine Other Casts 1 /LPF (None Seen) White Blood Count 11.1 K/uL (4.8-10.8) H Red Blood Count 3.69 MIL/uL (4.00-5.50) L Hemoglobin 10.5 g/dL (12.0-16.0) L Hematocrit 31.8 % (36-48) L Mean Corpuscular Volume 86.2 fL (79-99) Mean Corpuscular Hemoglobin 28.5 pg (27.0-33.0) Mean Corpuscular Hemoglobin Concent 33.0 g/dL (32.0-36.0) Red Cell Distribution Width 12.7 % (11.0-15.5) Platelet Count 155 K/uL (130-400) Mean Platelet Volume 12.9 fL (7.5-10.5) H Immature Granulocyte % (Auto) 0.5 % (0-1) Neutrophils (%) (Auto) 69.4 % (40.0-77.0) Lymphocytes (%) (Auto) 20.7 % (21.0-51.0) L Monocytes (%) (Auto) 8.0 % (3.0-13.0) Eosinophils (%) (Auto) 1.0 % (0.0-8.0) Basophils (%) (Auto) 0.4 % (0.0-5.0) Neutrophils # (Auto) 7.7 K/uL (1.8-7.7) Lymphocytes # (Auto) 2.3 K/uL (1.0-4.8) Monocytes # (Auto) 0.9 K/uL (0.1-1.0) Eosinophils # (Auto) 0.11 K/uL (0.00-0.70) Basophils # (Auto) 0.04 K/uL (0.00-0.20) Absolute Immature Granulocyte (auto 0.05 K/uL (0-1) Nucleated Red Blood Cells 0.0 % (0.0-0.19) Sodium Level 138 mmol/L (136-145) Potassium Level 3.6 mmol/L (3.5-5.1) Chloride Level 104 mmol/L (101-111) Carbon Dioxide Level 27 mmol/L (21-32) Blood Urea Nitrogen 3 mg/dL (7-18) L Creatinine 0.5 mg/dL (0.5-1.0) Glomerular Filtration Rate Calc 135 mL/min (>90) Random Glucose 88 mg/dL (70-105) Total Calcium 8.4 mg/dL (8.5-10.1) L Total Bilirubin 0.2 mg/dL (0.2-1.0) Direct Bilirubin 0.1 mg/dL (0.0-0.3) Aspartate Amino Transf (AST/SGOT) 17 U/L (10-37) Alanine Aminotransferase (ALT/SGPT) 14 U/L (12-78) Alkaline Phosphatase 134 U/L (50-136) Total Protein 6.6 g/dL (6.0-8.3) Albumin 2.8 g/dL (3.5-5.0) L Lipase 32 U/L (16-77) Labs Reviewed?: Yes ED Course ED Course Orders Procedure Category Date Status Time Cbc With Differential LAB 01/09/25 Complete 21: Basic Metabolic Panel LAB 01/09/25 Complete 21: Lipase LAB 01/09/25 Complete 21:02 Hepatic Function Panel LAB 01/09/25 Complete 21:02 Urinalysis Profile LAB 01/09/25 Complete 21:02 Us Ob >14 Weeks US 01/09/25 Resulted 21:02 0.9%Nacl 1000ml (Ns PHA 01/09/25 Complete 1000ml) 21:02 Acetaminophen 325 Tab PHA 01/09/25 Complete (Tylenol 325mg Tab 21:02 Culture Urine DONNY 01/09/25 In Process 21:25 Current Medications Medications (Trade) Dose Ordered Sig/Cecelia Route PRN Reason Start Time Stop Time Status Last Admin Dose Admin Acetaminophen (TYLenol 325MG TAB) 650 mg ONCE STAT PO 01/09/25 21:02 01/09/25 21:07 DC 01/09/25 21:17 Sodium Chloride 1,000 ml @ 1,000 mls/hr Q1H STAT IV 01/09/25 21:02 01/09/25 22:01 DC 01/09/25 21:17 Vital Signs Date Time Temp Pulse Resp B/P (MAP) Pulse Ox O2 Delivery O2 Flow Rate FiO2 01/09/25 22:21 98.2 78 16 103/64 98 Room Air* 0 21 01/09/25 21:01 98.2 72 16 115/55 98 Room Air* 0 21 01/09/25 20:41 98.4 77 20 109/68 98 Room Air Medical Decision Making MDM Patient has a slightly elevated white cell count which could be due to her alone or an infection. Patient's urine has a very large esterase activity in it. I am assuming she has a urinary tract infection and I will discharge her from the ED with a script for Keflex for seven days. DX & DISP Disposition: Discharge Departure Impression: Primary Impression: UTI (urinary tract infection) Condition: Stable Scripts Cephalexin Monohydrate (Keflex) 500 Mg Cap 500 MG PO QID for 7 Days, #28 CAP Prov: DARIN LAZAR MD 01/09/25 Referrals: TRESA LOBO MD (PCP) EZEKIEL MELGAR NP Jan 09, 2025 21:16 DARIN LAZAR MD Jan 09, 2025 22:34
[2025-01-09] MEDS: 0.9%NACL 1000ML 1,000 ML IV STA (21:17)
[2025-01-09] MEDS: acetaMINOPHEN 325 MG TAB PO STA (21:17)
[2025-01-09 21:22] LABS: BASOPHILS # (AUTO) 0.04 K/uL (0.00-0.20); BASOPHILS % (AUTO) 0.4 % (0.0-5.0); EOSINOPHILS # (AUTO) 0.11 K/uL (0.00-0.70); HEMATOCRIT 31.8 % (36-48); IMMATURE GRANULOCYTE ABSOLUTE 0.05 K/uL (0-1); LYMPHOCYTES # (AUTO) 2.3 K/uL (1.0-4.8); LYMPHOCYTES % (AUTO) 20.7 % (21.0-51.0); MEAN CORPUSCULAR HEMOGLOBIN 28.5 pg (27.0-33.0); MEAN CORPUSCULAR VOLUME 86.2 fL (79-99); MONOCYTES # (AUTO) 0.9 K/uL (0.1-1.0); NEUTROPHILS # (AUTO) 7.7 K/uL (1.8-7.7); NEUTROPHILS % (AUTO) 69.4 % (40.0-77.0); PLATELET COUNT (AUTO) 155 K/uL (130-400); RED BLOOD CELL COUNT(AUTO) 3.69 MIL/uL (4.00-5.50); RED CELL DISTRIBUTION WIDTH 12.7 % (11.0-15.5); WHITE BLOOD COUNT (AUTO) 11.1 K/uL (4.8-10.8)
[2025-01-09 21:24] LABS: APPEARANCE,URINE CLOUDY (CLEAR); BILIRUBIN,URINE NEGATIVE (NEGATIVE); COLOR,URINE LIGHT-YELLOW (YELLOW); GLUCOSE, URINE (UA) NEGATIVE (NEGATIVE); KETONES,URINE NEGATIVE (NEGATIVE); LEUKOCYTE ESTERASE ,URINE 500 Leu/uL (NEGATIVE); NITRATE,URINE NEGATIVE (NEGATIVE); OCCULT BLOOD,URINE NEGATIVE (NEGATIVE); PROTEIN,URINE NEGATIVE (NEGATIVE); UROBILINOGEN,URINE 0.2 mg/dL (0.2-1.0)
[2025-01-09 21:25] LABS: ADD UA MICROSCOPIC YES
[2025-01-09 21:33] LABS: BACTERIA,URINE RARE /HPF (None Seen); OTHER CASTS, URINE 1 /LPF (None Seen); RBC,URINE 0-1 /HPF (0-1); SQUAMOUS EPITHELIAL CELL,UR MOD /HPF (0-2)
[2025-01-09 21:34] LABS: CREATININE 0.5 mg/dL (0.5-1.0); POTASSIUM 3.6 mmol/L (3.5-5.1)
[2025-01-09 21:38] LABS: ALBUMIN 2.8 g/dL (3.5-5.0); BILIRUBIN,DIRECT 0.1 mg/dL (0.0-0.3); BILIRUBIN,TOTAL 0.2 mg/dL (0.2-1.0); TOTAL PROTEIN, SERUM 6.6 g/dL (6.0-8.3)
[2025-01-09 22:21] VITALS: BP 103/64; PULSE 78; RESP 16; TEMP 98.3; O2SAT 98
--- NOTE | 2025-01-09 22:27 | HMCIMG ---
US OB >14 WEEKS HISTORY: No additional history given. COMPARISON: None TECHNIQUE: ultrasound study was performed. FINDINGS: There is single intrauterine gestation with estimated gestational age of 32 weeks and 6 days. heart rate is 121 beats per minute. The fetus is in cephalic presentation with longitudinal lie. weight is estimated to be 2015 grams. Amniotic fluid volume is 20.3 centimeter. The placenta is located posteriorly. No evidence of placenta previa is seen. There is no evidence of nuchal cord. IMPRESSION: 1. There is single intrauterine gestation with estimated gestational age of 32 weeks and 6 days. heart rate is 121 beats per minute.
[2025-01-09] MEDS ORDERED: CEPH500B PO (22:32)
== END 2025-01-09 22:42 | disposition home or self-care (01) ==
LOC: EDH 20:25
DX: O23.43 Unspecified infection of urinary tract in pregnancy, third trimester (principal); N39.0 Urinary tract infection, site not specified; Z3A.32 32 weeks gestation of pregnancy; Z79.899 Other long term (current) drug therapy
CPT/HCPCS: 99284; 76805; 80076; 80048; 83690; 85025; 87086; 81001; 36415; J7030

== ENCOUNTER 2025-09-23 12:02 | Emergency (ER) | payer BC, MEDICAID ==
[~2025-09-23] VITALS: Ht 160 cm; Wt 68.0 kg
[~2025-09-23 12:02] MED LIST changes: +IBUP-1492 PO; -IBUP-2070 PO
--- NOTE | 2025-09-23 12:12 | ERN ---
ED Note History of Present Illness Stated Complaint: NAUSEA, VOMITING, GENERAL BODY ACHES Chief Complaint: Nausea,Vomiting,Diarrhea Time Seen by MD: 12:06 Dictation: PATIENT IS A 25-YEAR-OLD FEMALE HERE WITH HER WITH COMPLAINTS OF GENERALIZED BODY WEAKNESS NAUSEA VOMITING AND DIARRHEA ONSET YESTERDAY. SHE STATES SHE HAS MALAISE. NO FEVER NO CHILLS NO LOSS OF TASTE OR SMELL. STATES HER DAUGHTER AT HOME IS SICK WITH THE SAME SYMPTOMS. Allergies: Coded Allergies: No Known Drug Allergies (Unverified Allergy, Unknown, 08/25/22) Home Meds Active Scripts Cephalexin Monohydrate (Keflex) 500 Mg Cap, 500 MG PO QID for 7 Days, #28 CAP Prov:DARIN LAZAR MD 01/09/25 Cephalexin Monohydrate (Keflex) 500 Mg Cap, 500 MG PO QID for 7 Days, #28 CAP Prov:TRISTON VELAZQUEZ 10/03/24 Cephalexin Monohydrate (Keflex) 500 Mg Cap, 500 MG PO TID for 7 Days, #21 CAP Prov:VENTURA ZAVALA 09/11/24 Cephalexin Monohydrate (Keflex) 500 Mg Cap, 500 MG PO QID for 7 Days, #28 CAP Prov:ANNA MARIE VELAZQUEZ MD 07/23/24 Pnv 119/Iron Fum/Folic Acid ( 19 Tablet) 29 Mg Iron-1 Mg Tablet, 1 EACH PO DAILY, #30 TAB Prov:SHANNON VANESSA 06/28/24 Methylprednisolone (Medrol) 4 Mg Tab.ds.pk, 4 MG PO AD, #1 UNIT Prov:SHANNON VANESSAP 05/27/24 Benzonatate (Tessalon Perles) 100 Mg Cap, 200 MG PO TID for cough, #60 CAP 0 Refills TWO CAPSULES P.O. EVERY8 HOURS P.R.N. COUGH Prov:SHANNON VANESSA 05/27/24 Budesonide (Budesonide) 1 Mg/2 Ml Ampul.neb, 1 MG IH BID for 10 Days, #25 UNITS Prov:SHANNON VANESSA 05/27/24 Albuterol Sulfate (Albuterol Sulfate) 2.5 Mg/0.5 Ml Vial.neb, 2.5 MG IH Q6H for wheezing/sob, #20 INH 0 Refills Prov:SHANNON VANESSA 05/27/24 Azithromycin (Azithromycin) 500 Mg Tablet, 500 MG PO DAILY for 5 Days, #5 TAB Prov:ZEB GOMEZ MD 05/24/24 Prednisone (Prednisone) 20 Mg Tablet, 1 TAB PO AD for 6 Days, #14 TAB 0 Refills TAKE 1 TAB BY MOUTH THREE TIMES PER DAY X3 DAYS, THEN TAKE 1 TAB BY MOUTH TWICE A DAY X2 DAYS, THEN TAKE 1 TAB BY MOUTH ONCE A DAY X1 DAY. Prov:ZEB GOMEZ MD 05/24/24 Ketorolac Tromethamine (Ketorolac Tromethamine) 10 Mg Tablet, 10 MG PO BID for 5 Days, #10 TAB Prov:VENTURA ZAVALA PAC 04/20/24 Ibuprofen (Ibuprofen) 600 Mg Tablet, 600 MG PO Q6H PRN for PAIN, #30 TAB 0 Refills Prov:CRIS MAXWELL MD 01/15/24 Nitrofurantoin/Nitrofuran Mac (Macrobid) 100 Mg Cap, 1 CAP PO BID for 7 Days, #14 CAP 0 Refills Prov:CRIS MAXWELL MD 01/15/24 Cephalexin (Cephalexin) 500 Mg Capsule, 500 MG PO TID for 10 Days, #30 CAP Prov:SUE SANCHEZ MD 01/04/23 Ibuprofen (Ibuprofen) 800 Mg Tablet, 800 MG PO TID PRN for PAIN, #45 TAB Prov:ZAINAB JIMENEZ 08/25/22 Past Medical History Past Medical History: No Pertinent History Surgical History: None Family History: Negative Social History: Lives with family History: Not Applicable : 1 Para: 0 Aborts: 0 RN Note Reviewed/Agreed w/PFSH: Yes Review of System Dictation CONSTITUTIONAL: NEGATIVE EXCEPT FOR HPI MALAISE HEAD/FACE: NEGATIVE EXCEPT FOR HPI EENT: NEGATIVE EXCEPT FOR HPI RESPIRATORY: NEGATIVE EXCEPT FOR HPI GASTROINTESTINAL/ABDOMINAL: NEGATIVE EXCEPT FOR HPI NAUSEA VOMITING AND DIARRHEA GENITOURINARY: NEGATIVE EXCEPT FOR HPI MUSCULOSKELETAL: NEGATIVE EXCEPT FOR HPI INTEGUMENTARY: NEGATIVE EXCEPT FOR HPI NEUROLOGICAL/PSYCH: NEGATIVE EXCEPT FOR HPI HEMATOLOGIC/LYMPHATIC: NEGATIVE EXCEPT FOR HPI ALL SYSTEMS NEGATIVE, EXCEPT NOTED ABOVE. 13 POINT REVIEW OF SYSTEMS ASSESSED AND ALL NEGATIVE EXCEPT FOR ABOVE. Initial Vital Sign VS Vital Signs Date Time Temp Pulse Resp B/P (MAP) Pulse Ox O2 Delivery O2 Flow Rate FiO2 09/23/25 12:03 98.2 94 16 115/69 97 Room Air 09/23/25 12:32 0 21 Physical Exam Dictation VITAL SIGNS REVIEWED GENERAL APPEARANCE: ALERT, ORIENTED X 3, MILD ACUTE DISTRESS, WELL DEVELOPED, NOURISHED. HEAD AND FACE: NON-TRAUMATIC. EYES: PERRL, PINK CONJUNCTIVAS, EYELID NO TRAUMA, ANTERIOR CHAMBER WITH ARCUS SENILIS. EARS: PINNAS INTACT AND NO SIGNS OF TRAUMA OR ERYTHEMA EAR CANALS CLEAR AND NO DISCHARGE TM NO ERYTHEMA NOSE: NO DISCHARGE, NO BLEEDING. OROPHARYNX: MOUTH NORMAL, TONGUE PINK, PHARYNX CLEAR,NO ERYTHEMA, TONSILS NO EXUDATES, NO ABSCESSES NOTED, MUCOUS MEMBRANE MOIST NECK: SUPPLE, NON-TENDER, NO THYROMEGALY, NO MASSES, NO JVD, NO BRUITS BREAST:DEFERRED CHEST:NO TENDERNESS, NO CREPITUS, NO PARADOXICAL MOVEMENT, NO RETRACTIONS LUNGS:CLEAR, WELL-VENTILATED, SYMMETRIC, NO RALES, NO WHEEZING, NO RHONCHI, NO STRIDOR, GOOD BREATH SOUNDS BILATERALLY HEART: REGULAR RATE, REGULAR RHYTHM, NO MURMUR, NO GALLOPS VASCULAR: NO PERIPHERAL EDEMA, ABDOMEN: SOFT, POSITIVE BOWEL SOUNDS, NONDISTENDED, NO GUARDING, NONTENDER, NO REBOUND, NO MASSES NO HEPATOMEGALY, NO SPLENOMEGALY, NO LOWERY'S S IGN, NO HERNIAS. NO FOCAL TENDERNESS RECTAL: DEFERRED GENITAL: DEFERRED NEUROLOGICAL: NORMAL SPEECH, MOTOR FUNCTION INTACT, SENSORY FUNCTION INTACT MUSCULOSKELETAL: NECK NONTENDER, FULL RANGE OF MOTION, BACK NONTENDER, FULL RANGE OF MOTION, EXTREMITIES: NONTENDER, FULL RANGE OF MOTION SKIN: COLOR PINK, DRY, NO TURGOR, NO RASH, NO LACERATIONS, NO ABRASIONS, NO CONTUSIONS. LYMPHATIC: DEFERRED Results (Laboratory/Radiology) Laboratory/Radiology Laboratory Tests Test 09/23/25 12:05 09/23/25 12:31 Influenza Type A Antigen Negative For Type A Influenza Type B Antigen Negative For Type B SARS-CoV-2 Antigen (Rapid) PRESUMPTIVE NEGATIVE Group A Streptococcus Rapid negative (NEGATIVE) White Blood Count 11.7 K/uL (4.8-10.8) H Red Blood Count 5.08 MIL/uL (4.00-5.50) Hemoglobin 12.6 g/dL (12.0-16.0) Hematocrit 39.5 % (36-48) Mean Corpuscular Volume 77.8 fL (79-99) L Mean Corpuscular Hemoglobin 24.8 pg (27.0-33.0) L Mean Corpuscular Hemoglobin Concent 31.9 g/dL (32.0-36.0) L Red Cell Distribution Width 17.9 % (11.0-15.5) H Platelet Count 251 K/uL (130-400) Mean Platelet Volume 13.1 fL (7.5-10.5) H Immature Granulocyte % (Auto) 0.3 % (0-1) Neutrophils (%) (Auto) 92.9 % (40.0-77.0) H Lymphocytes (%) (Auto) 4.2 % (21.0-51.0) L Monocytes (%) (Auto) 2.3 % (3.0-13.0) L Eosinophils (%) (Auto) 0.1 % (0.0-8.0) Basophils (%) (Auto) 0.2 % (0.0-5.0) Neutrophils # (Auto) 10.9 K/uL (1.8-7.7) H Lymphocytes # (Auto) 0.5 K/uL (1.0-4.8) L Monocytes # (Auto) 0.3 K/uL (0.1-1.0) Eosinophils # (Auto) 0.01 K/uL (0.00-0.70) Basophils # (Auto) 0.02 K/uL (0.00-0.20) Absolute Immature Granulocyte (auto 0.03 K/uL (0-1) Nucleated Red Blood Cells 0.0 % (0.0-0.19) White Cell Morphology Comment See comments Red Blood Cell Morphology See comments Sodium Level 139 mmol/L (136-145) Potassium Level 3.9 mmol/L (3.5-5.1) Chloride Level 105 mmol/L (101-111) Carbon Dioxide Level 26 mmol/L (21-32) Blood Urea Nitrogen 11 mg/dL (7-18) Creatinine 0.6 mg/dL (0.5-1.0) Glomerular Filtration Rate Calc 128 mL/min (>90) Random Glucose 112 mg/dL (70-105) H Total Calcium 8.1 mg/dL (8.5-10.1) L Labs Reviewed?: Yes ED Course ED Course Orders Procedure Category Date Status Time Covid19 (Sars Antigen LAB 09/23/25 Complete Rapid) 12:07 Influenza Type A & B, LAB 09/23/25 Complete Rapid 12:07 Rapid (Group A Strep) LAB 09/23/25 Complete 12:07 Cbc With Differential LAB 09/23/25 Complete 12:09 ,Urine Test LAB 09/23/25 Logged 12:09 Urinalysis Profile LAB 09/23/25 Logged 12:09 Basic Metabolic Panel LAB 09/23/25 Complete 12:09 Ondansetron Odt 4mg PHA 09/23/25 Complete Tab (Zofran 4mg Odt) 12:30 Current Medications Medications (Trade) Dose Ordered Sig/Cecelia Route PRN Reason Start Time Stop Time Status Last Admin Dose Admin Ondansetron HCl (zoFRAN 4MG ODT) 4 mg ONCE ONCE SL 09/23/25 12:30 09/23/25 12:31 DC 09/23/25 12:41 Vital Signs Date Time Temp Pulse Resp B/P (MAP) Pulse Ox O2 Delivery O2 Flow Rate FiO2 09/23/25 12:32 98.2 94 16 165/69 97 Room Air* 0 21 09/23/25 12:03 98.2 94 16 115/69 97 Room Air 1450/PATIENT STATES SHE DOES NOT WAIT IT WANT TO WAIT ANY LONGER FOR THE RESULTS THAT SHE HAS ALREADY BEEN HERE SINCE AFTERNOON. I ADVISED HER WE WAITING FOR THE URINE SHE SAID SHE DID NOT WANT TO WAIT. INTO RIGHT IT UP I FOUND IT. NAUSEA VOMITING AT THIS TIME. Medical Decision Making MDM MEDICAL DISCHARGE MAKING BASED ON FLU-LIKE SYMPTOMS CBC CHEMISTRY THE SWABS FOR FLU COVID AND STREP PATIENT REFUSED TO WAIT FOR URINALYSIS OR HCG DISCHARGED HOME WITH VIRAL SYNDROME AND VOMITING DX & DISP Disposition: Discharge Departure Impression: Primary Impression: Acute viral syndrome Additional Impression: Nausea & vomiting Condition: Stable Scripts Ondansetron (Ondansetron Odt) 4 Mg Tab.rapdis 4 MG PO Q6HPRN PRN for nausea, #16 TAB 0 Refills Prov: SHANNON VANESSA BATCH AND FURNACE MANAGER 09/23/25 Additional Instructions: FOLLOW-UP WITH PRIMARY CARE PROVIDER IN 1 TO 2 DAYS. TAKE MEDICATIONS DIRECT ED HERE IN THE EMERGENCY ROOM. OKAY TO CONTINUE HOME MEDICATIONS UNLESS OTHERWISE DISCUSSED DURING YOUR VISIT IN THE EMERGENCY ROOM TODAY. RETURN TO YOUR NEAREST EMERGENCY ROOM IF SYMPTOMS WORSEN OR IF THERE IS NO IMPROVEMENT. CALL 911 IF YOU NEED IMMEDIATE ASSISTANCE. TAKE TYLENOL OR MOTRIN [id number] NEEDED AND IF NO CONTRAINDICATIONS ARE PRESENT. INCREASE ORAL HYDRATION. A WOUND CULTURE OR URINE CULTURE WAS ORDERED HERE IN THE EMERGENCY ROOM DEPARTMENT PLEASE FOLLOW-UP WITH PRIMARY CARE PROVIDER AND ADVISE THEM TO GET REPEAT PORTS FROM OUR FACILITY. IF YOU HAD ANY VIVIANE WRAP/SPLINTS THAT WERE APPLIED HERE, PLEASE DO NOT REMOVE THEM UNTIL YOU SEE YOUR PRIMARY CARE OR SPECIALTY. TAKE ZOFRAN DIRECTED FOR NAUSEA VOMITING. SUGGEST CLEAR LIQUID DIET FOR THE NEXT 18 HOURS AND THEN ADVANCE DIET SLOWLY TO REGULAR TYLENOL [id number] NEEDED FOR FEVER PAIN SEE YOUR PRIMARY CARE DOCTOR FOR FOLLOW UP Referrals: SELF,REFERRAL (PCP) Time of Disposition: 14:50 I have reviewed the case, and I agree with, Diagnosis and Plan SHANNON VANESSA BATCH AND FURNACE MANAGER Sep 23, 2025 12:11
[2025-09-23 12:37] LABS: RAPID GROUP A STREP negative (NEGATIVE)
[2025-09-23 12:40] LABS: IMMATURE GRANULOCYTE ABSOLUTE 0.03 K/uL (0-1); NUCLEATED RED BLOOD CELLS 0.0 % (0.0-0.19); PLATELET COUNT (AUTO) 251 K/uL (130-400); RED BLOOD CELL COUNT(AUTO) 5.08 MIL/uL (4.00-5.50); RED CELL DISTRIBUTION WIDTH 17.9 % (11.0-15.5); WHITE BLOOD COUNT (AUTO) 11.7 K/uL (4.8-10.8)
[2025-09-23 12:45] LABS: INFLUENZA TYPE A Negative For Type A (NEGATIVE); INFLUENZA TYPE B Negative For Type B (NEGATIVE)
[2025-09-23 12:46] LABS: COVID19 (SARS ANTIGEN RAPID) PRESUMPTIVE NEGATIVE (NEGATIVE)
[2025-09-23 12:47] LABS: CREATININE 0.6 mg/dL (0.5-1.0); GLOMERULAR FILTR. RATE CALC 128.0 mL/min (>90); GLUCOSE,RANDOM 112.0 mg/dL (70-105); SODIUM SERUM 139.0 mmol/L (136-145); UREA NITROGEN, BLOOD 11.0 mg/dL (7-18)
[2025-09-23] MEDS ORDERED: ONDA-243 PO (14:51)
[2025-09-23 15:40] VITALS: BP 142/71; PULSE 88; RESP 16; TEMP 98.2; O2SAT 97
== END 2025-09-23 15:41 | disposition home or self-care (01) ==
LOC: EDH 12:02
DX: B34.9 Viral infection, unspecified (principal); R11.2 Nausea with vomiting, unspecified; R19.7 Diarrhea, unspecified; Z20.822 Contact with and (suspected) exposure to COVID-19
CPT/HCPCS: 36415; 80048; 85025; 87426; 87804; 87880; 99283